=== PATIENT | female | born 1990 | race Caucasian/White ===

== ENCOUNTER → 2019-03-25 | Outpatient (CLI) | payer OTHER ==
[~2019-03-25] MED LIST: NORG1TAB74 PO; VENL37.53 PO
--- NOTE | 2019-03-25 10:28 | RADIOLOGY IMAGING REPORT ---
[place] [facility] [place]IENT NAME: Melissa Drake : 1990 MR: [id number] V: [id number] EXAM DATE: ORDERING PHYSICIAN: CHRISTINE DE LA PAZ TECHNOLOGIST: Location[place] [facility] [place] Patient: Melissa Drake : 1990 Visit/Account:[id number] Date of Sevice: 03/25/2019 TRANSVAGINAL NON-OB HISTORY: Right lower quadrant pain with history of polycystic ovary syndrome. TECHNIQUE: There has been satisfactory transvaginal ultrasonic evaluation of the pelvis. COMPARISON: None. FINDINGS: Uterus: Retroverted; it measures: 5.6 cm length x 3.2 cm AP x 4.3 cm transverse. Myometrium: Unremarkable. No fibroids identified.. Endometrium: Unremarkable; endometrial thickness 6.5 mm. Cervix: Grossly negative. Ovaries: Right - the right ovary measures 3.5 x 1.8 x 2.0 cm in size. It contains several follicular cys ts. Left - ovary measures 3.0 x 1.7 x 2.1 cm in size. It also contains several predominantly periph eral cyst. Blood flow is documented in each ovary by duplex Doppler ultrasound. Adnexa: Grossly unremarkable. Free pelvic fluid: None. Bladder: The bladder is decompressed for transvaginal imaging. IMPRESSION: 1. Retroverted but otherwise unremarkable uterus. 2. The ovaries contain multiple follicular cysts bilaterally. The distribution is somewhat peripher al. This can be seen with polycystic ovary syndrome, but correlation with clinical findings is recom mended. Report Dictated By: Jarret Wesley MD at 03/25/2019 10:19 AM Report E-Signed By: Jarret Wesley MD at 03/25/2019 10:21 AM WSN:[id number]
== END ==
LOC: US 04:00
PROVIDERS: ATTEND Family Medicine
DX: R10.30 Lower abdominal pain, unspecified (principal); N83.01 Follicular cyst of right ovary; N83.02 Follicular cyst of left ovary
CPT/HCPCS: 76830

== ENCOUNTER 2019-03-27 10:18 | Emergency (ER) | payer OTHER ==
[2019-03-27] MEDS ORDERED: NS(*) 0.9% 1000 ML BAG 1,000 ML IV ONE (10:26)
--- NOTE | 2019-03-27 10:29 | ER Report ---
History and Physical Time Seen By MD: 10:26 Hx. of Stated Complaint: ABDOMINAL PAIN FOR A COUPLE OF WEEKS. LAST NIGHT PT REPORTS A FEVER, PAIN INCREASED. HPI/ROS CHIEF COMPLAINT: Abdominal pain HISTORY OF PRESENT ILLNESS: Patient is an otherwise healthy 29-year-old female comes with right lower quadrant pain. Patient states the pain has been episodic for the last 3 weeks comes and goes no loosening relieving factors. One episode of loose stool one episode of vomiting. Patient states the pain is sharp stabbing localized right over McBurney's tenderness. Patient denies any hematuria and urinary complaints pyuria or increased frequency. Patient denies chest pain or shortness of breath or additional complaints noted REVIEW OF SYSTEMS: Respiratory: No cough, no dyspnea. Cardiovascular: No chest pain, no palpitations. Gastrointestinal: Abdominal pain right lower quadrant Musculoskeletal: No back pain. Remainder of the 14 system rev: Yes Allergies: Coded Allergies: amoxicillin (Verified Allergy, Intermediate, 03/27/19) Home Meds Reported Medications Venlafaxine Hcl (VENLAFAXINE HCL ER) 37.5 Mg Cap.er.24h, 37.5 MG PO QDAY 03/27/19 Norgestimate-Ethinyl Estradiol (SPRINTEC) 1 Each Tablet, 1 EACH PO DAILY 03/27/19 Reviewed Nurses Notes: Yes Old Medical Records Reviewed: Yes Constitutional Vital Sign - Last 24 Hours 03/27/19 03/27/19 03/27/19 03/27/19 10:21 10:22 10:30 10:48 Temp 98.0 Pulse 98 91 Resp 16 B/P (MAP) 139/79 139/79 (99) 129/99 (109) Pulse Ox 95 97 03/27/19 03/27/19 11:18 11:30 Pulse 91 B/P (MAP) 122/79 (93) Pulse Ox 99 Physical Exam General Appearance: [The patient is alert, has no immediate need for airway protection and no current signs of toxicity.] [ ] Eyes: Pupils equal and round no injection. Respiratory: Chest is non tender, lungs are clear to auscultation. Cardiac: regular rate and rhythm [ ] Gastrointestinal: Abdominal examination significant discomfort elicited with pain and palpation of the right lower quadrant positive McBurney's tenderness rebound no guarding no additional findings of note Musculoskeletal: Neck: Neck is supple and non tender. Extremities have full range of motion and are non tender. Skin: No rashes or lesions. [ ] DIFFERENTIAL DIAGNOSIS: After history and physical exam differential diagnosis was considered for acute appendicitis ovarian cyst ovarian torsion. colitis diverticulitis Medical Decision Making Data Points Result Diagram: 03/27/19 1025 03/27/19 1025 Laboratory Hematology Test 03/27/19 00:00 03/27/19 10:25 03/27/19 11:20 Human Chorionic Gonadotropin, Qual Negative (NEGATIVE) Red Blood Count 4.56 M/uL (4.17-5.56) Mean Corpuscular Volume 89.6 fL (80.0-96.0) Mean Corpuscular Hemoglobin 29.5 pg (26.0-33.0) Mean Corpuscular Hemoglobin Concent 33.0 g/dL (32.0-36.0) Red Cell Distribution Width 12.9 % (11.5-14.5) Mean Platelet Volume 7.4 fL (7.2-11.1) Neutrophils (%) (Auto) 79.1 % (39.4-72.5) Lymphocytes (%) (Auto) 12.6 % (17.6-49.6) Monocytes (%) (Auto) 7.2 % (4.1-12.4) Eosinophils (%) (Auto) 0.5 % (0.4-6.7) Basophils (%) (Auto) 0.6 % (0.3-1.4) Nucleated RBC Relative Count (auto) 0.0 /100WBC Neutrophils # (Auto) 12.3 K/uL (2.0-7.4) Lymphocytes # (Auto) 2.0 K/uL (1.3-3.6) Monocytes # (Auto) 1.1 K/uL (0.3-1.0) Eosinophils # (Auto) 0.1 K/uL (0.0-0.5) Basophils # (Auto) 0.1 K/uL (0.0-0.1) Nucleated RBC Absolute Count (auto) 0.01 K/uL Prothrombin Time 14.3 seconds (12.0-14.4) Prothromb Time International Ratio 1.10 Activated Partial Thromboplast Time 35 seconds (23-35) Sodium Level 142 mmol/L (137-145) Potassium Level 4.1 mmol/L (3.5-5.0) Chloride Level 106 mmol/L (98-107) Carbon Dioxide Level 25 mmol/L (22-31) Blood Urea Nitrogen 9 mg/dl (7-18) Creatinine 0.70 mg/dl (0.52-1.04) Glomerular Filtration Rate Calc > 60.0 Random Glucose 99 mg/dl (75-110) Calcium Level 9.1 mg/dl (8.4-10.2) Total Bilirubin 0.5 mg/dl (0.2-1.3) Aspartate Amino Transf (AST/SGOT) 15 U/L (0-35) Alanine Aminotransferase (ALT/SGPT) 32 U/L (0-56) Alkaline Phosphatase 137 U/L (0-126) Total Protein 7.7 g/dl (6.3-8.2) Albumin 3.8 g/dl (3.5-5.0) Lipase 57 U/L (23-300) Urine Color Straw Urine Clarity Clear Urine pH 6.0 pH (4.8-9.5) Urine Specific Hilliard 1.024 Urine Protein Negative mg/dL (NEGATIVE) Urine Glucose (UA) Negative mg/dL (NEGATIVE) Urine Ketones Negative mg/dL (NEGATIVE) Urine Blood Negative (NEGATIVE) Urine Nitrite Negative (NEGATIVE) Urine Bilirubin Negative (NEGATIVE) Urine Urobilinogen Negative mg/dL (0.2-1.9) Urine Leukocyte Esterase Negative (NEGATIVE) Urine RBC <1 /HPF (0-2/HPF) Urine WBC <1 /HPF (0-5/HPF) Urine Squamous Epithelial Cells Few /LPF (</=FEW) Urine Bacteria Negative /HPF (NONE-FEW) Urine Mucus None /HPF (NONE-FEW) Chemistry Test 03/27/19 00:00 03/27/19 10:25 03/27/19 11:20 Human Chorionic Gonadotropin, Qual Negative (NEGATIVE) White Blood Count 15.6 k/uL (4.5-11.0) Red Blood Count 4.56 M/uL (4.17-5.56) Hemoglobin 13.5 g/dL (12.0-16.0) Hematocrit 40.9 % (34.0-47.0) Mean Corpuscular Volume 89.6 fL (80.0-96.0) Mean Corpuscular Hemoglobin 29.5 pg (26.0-33.0) Mean Corpuscular Hemoglobin Concent 33.0 g/dL (32.0-36.0) Red Cell Distribution Width 12.9 % (11.5-14.5) Platelet Count 431 K/uL (150-450) Mean Platelet Volume 7.4 fL (7.2-11.1) Neutrophils (%) (Auto) 79.1 % (39.4-72.5) Lymphocytes (%) (Auto) 12.6 % (17.6-49.6) Monocytes (%) (Auto) 7.2 % (4.1-12.4) Eosinophils (%) (Auto) 0.5 % (0.4-6.7) Basophils (%) (Auto) 0.6 % (0.3-1.4) Nucleated RBC Relative Count (auto) 0.0 /100WBC Neutrophils # (Auto) 12.3 K/uL (2.0-7.4) Lymphocytes # (Auto) 2.0 K/uL (1.3-3.6) Monocytes # (Auto) 1.1 K/uL (0.3-1.0) Eosinophils # (Auto) 0.1 K/uL (0.0-0.5) Basophils # (Auto) 0.1 K/uL (0.0-0.1) Nucleated RBC Absolute Count (auto) 0.01 K/uL Prothrombin Time 14.3 seconds (12.0-14.4) Prothromb Time International Ratio 1.10 Activated Partial Thromboplast Time 35 seconds (23-35) Glomerular Filtration Rate Calc > 60.0 Calcium Level 9.1 mg/dl (8.4-10.2) Total Bilirubin 0.5 mg/dl (0.2-1.3) Aspartate Amino Transf (AST/SGOT) 15 U/L (0-35) Alanine Aminotransferase (ALT/SGPT) 32 U/L (0-56) Alkaline Phosphatase 137 U/L (0-126) Total Protein 7.7 g/dl (6.3-8.2) Albumin 3.8 g/dl (3.5-5.0) Lipase 57 U/L (23-300) Urine Color Straw Urine Clarity Clear Urine pH 6.0 pH (4.8-9.5) Urine Specific Hilliard 1.024 Urine Protein Negative mg/dL (NEGATIVE) Urine Glucose (UA) Negative mg/dL (NEGATIVE) Urine Ketones Negative mg/dL (NEGATIVE) Urine Blood Negative (NEGATIVE) Urine Nitrite Negative (NEGATIVE) Urine Bilirubin Negative (NEGATIVE) Urine Urobilinogen Negative mg/dL (0.2-1.9) Urine Leukocyte Esterase Negative (NEGATIVE) Urine RBC <1 /HPF (0-2/HPF) Urine WBC <1 /HPF (0-5/HPF) Urine Squamous Epithelial Cells Few /LPF (</=FEW) Urine Bacteria Negative /HPF (NONE-FEW) Urine Mucus None /HPF (NONE-FEW) Coagulation Test 03/27/19 10:25 Prothrombin Time 14.3 seconds Prothromb Time International Ratio 1.10 Activated Partial Thromboplast Time 35 seconds Urinalysis Test 03/27/19 11:20 Urine Color Straw Urine Clarity Clear Urine pH 6.0 pH (4.8-9.5) Urine Specific Hilliard 1.024 Urine Protein Negative mg/dL (NEGATIVE) Urine Glucose (UA) Negative mg/dL (NEGATIVE) Urine Ketones Negative mg/dL (NEGATIVE) Urine Blood Negative (NEGATIVE) Urine Nitrite Negative (NEGATIVE) Urine Bilirubin Negative (NEGATIVE) Urine Urobilinogen Negative mg/dL (0.2-1.9) Urine Leukocyte Esterase Negative (NEGATIVE) Urine RBC <1 /HPF (0-2/HPF) Urine WBC <1 /HPF (0-5/HPF) Urine Squamous Epithelial Cells Few /LPF (</=FEW) Urine Bacteria Negative /HPF (NONE-FEW) Urine Mucus None /HPF (NONE-FEW) ED Course/Re-evaluation ED Course ED course 29-year-old female comes in with acute right lower quadrant pain epis odically for the last week to week and a half spiked a fever 102 yesterday examinations consistent with positive McBurney's tenderness significant rebound and guarding CT scan shows a 6.8 cm periappendiceal abscess to Gen. surgery secondary to the abscess requiring I or drainage patient be transferred to an outside facility and then for IR drainage and future appendicitis evaluation removal Decision to Disposition Date: Mar 27, 2019 Decision to Disposition Time: 12:02 Depart Departure Latest Vital Signs Vital Signs Date Time Temp Pulse Resp B/P (MAP) Pulse Ox O2 Delivery O2 Flow Rate FiO2 03/27/19 11:30 122/79 (93) 03/27/19 11:18 91 99 03/27/19 10:21 98.0 16 Impression: Primary Impression: Abscess, periappendiceal Condition: Improved Disposition: [facility] BLANKA CASTILLO MD Mar 27, 2019 10:29
[2019-03-27] MEDS ORDERED: ONDANSETRON 4 MG/2 ML VIAL IVP ONE (10:30)
[2019-03-27] MEDS ORDERED: NORG1TAB74 PO (10:34)
[2019-03-27] MEDS ORDERED: VENL37.53 PO (10:35)
[2019-03-27 10:41] LABS: PLATELET COUNT, AUTOMATED 431 K/uL (150-450)
[2019-03-27] MEDS ORDERED: IOPAMIDOL 76% 100 ML INFUS BTL 100 ML ONE (10:50)
[2019-03-27 10:51] LABS: INR 1.1
--- NOTE | 2019-03-27 11:56 | RADIOLOGY IMAGING REPORT ---
FACILITY: [facility] - [place] PATIENT NAME: Melissa Drake : 1990 MR: [id number] V: [id number] EXAM DATE: ORDERING PHYSICIAN: BLANKA CASTILLO TECHNOLOGIST: Location: [facility] Patient: Melissa Drake : 1990 Visit/Account:[id number] Date of Sevice: 03/27/2019 ADDENDUM #1 ADDENDUM: Several enlarged lymph nodes measuring up to 2 cm in diameter consistent with reactive adenopathy are present in the right abdominal small bowel mesentery and retroperitoneum. Report Dictated By: Marquise Ruvalcaba MD at 03/27/2019 5:07 PM Report E-Signed By: Marquise Ruvalcaba MD at 03/27/2019 5:[address] scan of the abdomen and pelvis with contrast. HISTORY: Right lower quadrant pain for 3 weeks. COMPARISON: Pelvic ultrasound 03/25/2019. 3 mm and [address] images were obtained of the abdomen and pelvis using 75 mL intravenous I sovue-370. No oral contrast. One of the following dose optimization techniques was utilized in the pe rformance of this exam: Automated exposure control; adjustment of the mA and/or kV according to the p atient's size; or use of an iterative reconstruction technique. Specific details can be referenced in the facility's radiology CT exam operational policy. FINDINGS: The lung bases are clear. The liver and spleen are normal in size and free of focal defects. The gallbladder and bile ducts are unremarkable. The pancreas is normal in size. The portal vein is patent. The kidneys and adrenal gla nds are normal in size. No hydronephrosis. The ureters are not opacified. The urinary bladder is not opacified or distended. A normal appendix is not identified. An ill-define d multiloculated collection measuring 6.8 cm in transverse diameter is present in the right lower abd omen and pelvis, contiguous with the inferior medial aspect of the cecum. The uterus is normal in siz e and slightly heterogeneous. The ovaries are normal in size. A small amount of free fluid is present in the posterior pelvic cul-de-sac. Unopacified bowel loops are scattered in the abdomen and pelvis. The abdominal aorta is normal in size. No acute bony abnormalities. A few diverticula are present al kenneth the sigmoid colon. The sigmoid colon is incompletely distended. Moderate amounts of gas and stool are scattered elsewhere in the colon. Phleboliths are present in the true pelvis. IMPRESSION: Multiloculated right lower quadrant collection suspicious for a periappendiceal abscess. Other etiolo gies are also possible. Mild pelvic free fluid. Minimal sigmoid diverticulosis. Results were discussed with BLANKA CASTILLO at 03/27/2019 11:48 AM. Report Dictated By: Marquise Ruvalcaba MD at 03/27/2019 11:38 AM Report E-Signed By: Marquise Ruvalcaba MD at 03/27/2019 11:51 AM WSN:[id number]
[2019-03-27 12:00] VITALS: BP 132/86
== END 2019-03-27 13:24 | disposition short-term general hospital (02) ==
LOC: ER 10:37
DX: K35.33 Acute appendicitis with perforation, localized peritonitis, and gangrene, with abscess (principal)
CPT/HCPCS: 74177; 81001; 83690; 84703; 85025; 85610; 85730; 96360; 99285; J7030; Q9967; 82040; 82247; 82310; 82374; 82435; 82565; 82947; 84075; 84132; 84155; 84295; 84450; 84460; 84520

== ENCOUNTER → 2019-03-27 | Outpatient (CLI) | payer OTHER | LOC: AMB 13:15 | PROVIDERS: ATTEND Nurse Practitioner | DX: K37 Unspecified appendicitis (principal); R10.9 Unspecified abdominal pain | CPT/HCPCS: A0425; A0426 ==

== ENCOUNTER → 2019-05-16 | Outpatient (CLI) | payer OTHER ==
[~2019-05-16] MED LIST changes: +CEF300 PO; +IOPAMIDOL 76% 100 ML INFUS BTL 100 ML ONE; +METR500T15 PO; +SULF-198 PO
--- NOTE | 2019-05-16 10:56 | RADIOLOGY IMAGING REPORT ---
FACILITY: [facility] PATIENT NAME: Melissa Drake : 1990 MR: [id number] V: [id number] EXAM DATE: ORDERING PHYSICIAN: FINN BLACKMON TECHN[place] [facility] [place] : 1990 Visit/Account:[id number] Date of Sevice: 05/16/2019 CT ABDOMEN PELVIS W/ CON HISTORY: History of appendicitis with abscess and drain placement. TECHNIQUE: Following administration of IV contrast contiguous axial images acquired through the abdom en/pelvis. Coronal and sagittal reformatting also performed.Dose Lowering Technique One of the following dose optimization techniques was utilized in the performance of this exam: Autom ated exposure control; adjustment of the mA and/or kV according to the patient's size; or use of an i terative reconstruction technique. Specific details can be referenced in the facility's radiology C T exam operational policy. CONTRAST: 75 mL Isovue-370 COMPARISON: March 27, 2019 FINDINGS: Visualized lung bases: Negative. Hepatobiliary: Negative. Spleen: Negative. Adrenals: Negative. Pancreas: Negative. Kidneys ureters or bladder: Negative. Genitalia: Negative. GI: The appendix appears thickened measuring up to 1.3 cm in diameter. There has however been resol ution of the previously noted periappendiceal abscess. No surrounding inflammatory change identified in the periappendiceal fat and there is no evidence of free intra-abdominal or free pelvic fluid. Vessels/spaces/nodes: There are mildly prominent mesenteric lymph nodes are again seen in the right lower quadrant although appear less prominent when compared the prior study Bones/soft tissues: Schmorl's nodes in the lumbar spine Additional findings: None pertinent. IMPRESSION: The appendix appears thickened measuring up to 1.3 cm in diameter although no surrounding inflammator y changes identified at this time. (By history this is a preop evaluation for an appendectomy) The previously noted periappendiceal abscess has resolved Mildly prominent mesenteric lymph nodes are again seen in the right lower quadrant although appear sl ightly less prominent. Results were called to FINN BLACKMON at 05/16/2019 10:47 AM. Report Dictated By: Lynda Kuhn MD at 05/16/2019 10:17 AM Report E-Signed By: Lynda Kuhn MD at 05/16/2019 10:47 AM WSN:[email or web address]
== END ==
LOC: CT 00:53
PROVIDERS: ATTEND Surgery
DX: K35.890 Other acute appendicitis without perforation or gangrene (principal)
CPT/HCPCS: 74177; Q9967

== ENCOUNTER 2019-05-20 00:29 | Day surgery (SDC) | payer OTHER ==
[~2019-05-20] VITALS: Ht 175.3 cm; Wt 83.9 kg
[~2019-05-20 00:29] MED LIST changes: -IOPAMIDOL 76% 100 ML INFUS BTL 100 ML ONE
[2019-05-20] MEDS ORDERED: cefOXitin/DEX(*) 2GM/50ML PREM 50 ML IVPB ONE (06:00)
[2019-05-20] MEDS ORDERED: PREGABALIN 150 MG CAPSULE PO ONE (06:00)
[2019-05-20] MEDS ORDERED: ACETAMINOPHEN 500 MG TAB PO ONE (06:00)
[2019-05-20] MEDS ORDERED: LIDOCAINE/SOD BICARB 8.4% SYR ID ONE (06:00)
[2019-05-20] MEDS ORDERED: FAMOTIDINE 20 MG TAB PO ONE (06:00)
[2019-05-20] MEDS ORDERED: MIDAZOLAM 2 MG/2 ML VIAL IVP PRN (06:00)
[2019-05-20] MEDS ORDERED: NORMOSOL R SOLN(*) 1000 ML BAG 1,000 ML IV PRN (06:00)
[2019-05-20 06:16] VITALS: BP 107/72
[2019-05-20] MEDS ORDERED: LIDOCAINE 2% IV 100 MG/5ML SYR ONE (06:39)
[2019-05-20] MEDS ORDERED: ROCURONIUM BR 10 MG/ML 5 ML SY 5 ML ONE (06:39)
[2019-05-20] MEDS ORDERED: ONDANSETRON 4 MG/2 ML VIAL ONE (06:39)
[2019-05-20] MEDS ORDERED: PROPOFOL EMUL(*) 10MG/ML 20 ML 20 ML ONE (06:39)
[2019-05-20] MEDS ORDERED: DEXAMETHASONE SOD PHOS 10MG/ML ONE (06:39)
[2019-05-20] MEDS ORDERED: fentaNYL CITR 100 MCG/2 ML AMP ONE (06:39)
[2019-05-20] MEDS ORDERED: ROPIVACAINE 0.5% 20 ML VIAL ONE (06:53)
[2019-05-20 07:15] LABS: PLATELET COUNT, AUTOMATED 253 K/uL (150-450)
[2019-05-20] MEDS ORDERED: TRAM-420 PO (08:14)
[2019-05-20] MEDS ORDERED: DOCU-416 PO (08:14)
--- NOTE | 2019-05-20 08:16 | Short(Outpt) Discharge Summary ---
Discharge Summary Reason for Hosp/Final Diag: (1) Appendicitis with abscess Status: Resolved Hospital Course & Plan: Interval lap appy completed without problems. Departure Discharge to: Home, Self Care Discharge Instructions Home Meds Active Scripts Docusate Sodium (COLACE) 100 Mg Capsule, 1 CAP PO BID, #30 CAP 0 Refills TAKE WITH A FULL GLASS OF WATER Prov:FINN BLACKMON MD 05/20/19 Tramadol Hcl (TRAMADOL HCL) 50 Mg Tablet, 1 TAB PO Q4H PRN for PAIN, #20 TAB 0 Refills Prov:FINN BLACKMON MD 05/20/19 Sulfamethoxazole/Trimet 800-160 Mg Tab (BACTRIM DS TABLET) 1 Each Tablet, 1 TAB PO Q12H, #30 TAB 0 Refills Prov:FINN BLACKMON MD 05/17/19 Reported Medications Venlafaxine Hcl (VENLAFAXINE HCL ER) 37.5 Mg Cap.er.24h, 37.5 MG PO QDAY 03/27/19 Norgestimate-Ethinyl Estradiol (SPRINTEC) 1 Each Tablet, 1 EACH PO DAILY 03/27/19 Discontinued Scripts Metronidazole (METRONIDAZOLE) 500 Mg Tablet, 1 TAB PO TID, #21 TAB 0 Refills Prov:FINN BLACKMON MD 04/13/19 Cefdinir 300 Mg Cap (OMNICEF 300 MG CAP (OR EQUIV)) 300 Mg Cap, 1 CAP PO BID, #14 CAP 0 Refills Prov:FINN BLACKMON MD 04/13/19 Follow up Referrals: General Surgery - 06/01/19 @ Surgery, General with FINN BLACKMON MD You have a follow up appointment scheduled with Dr. Blackmon on 06/01/19, at 3:30pm. Diet: Regular Activity: As Tolerated Special Instructions: You may remove the white surgical dressings on 05/22/19, then you can shower. After showering, leave the incisions open to air but leave the steristrips in place until they fall off on their own. Do not immerse the incisions for 2 weeks. FINN BLACKMON MD May 20, 2019 08:16
--- NOTE | 2019-05-20 08:23 | Post Operative Progress Note ---
Post Operative Progress Note Date: May 20, 2019 Time: 08:13 Surgeon: Dariel Dictation number: [id number] Anesthesia: GETA by Dr. Mayberry Pre-Op Diagnosis: Appendicitis with abscess Post-Op Diagnosis: JOSE Findings: Inflamed distal appendix, no abscess, fluid, perforation, gangrene, or purulence Procedure(s): Interval lap appy Specimen Removed:(May be N/A): Appendix Complications: None Fluids: see anesthesia record Estimated Blood Loss: Minimal Date OP Note Dictated: May 20, 2019 Time OP Note Dictated: 08:14 FINN BLACKMON MD May 20, 2019 08:23
[2019-05-20 09:00] VITALS: BP 112/81
[2019-05-20 09:30] VITALS: BP 128/96
[2019-05-20 09:32] VITALS: BP 131/90
--- NOTE | 2019-05-20 10:24 | OPERATIVE REPORT 1 ---
EVENT DATE: May 20, 2019 SURGEON: Alfonzo Vieira MD ANESTHESIOLOGIST: Bam Mayberry MD ANESTHESIA: General endotracheal. PREOPERATIVE DIAGNOSIS History of appendicitis with abscess. POSTOPERATIVE DIAGNOSIS History of appendicitis with abscess. PROCEDURE PERFORMED Interval laparoscopic appendectomy. COMPLICATIONS None. CONDITION Stable. ESTIMATED BLOOD LOSS Minimal. FINDINGS The patient's distal appendix was inflamed, about the distal two-thirds. The base, approximately 1 cm from the cecum looked relatively normal. SPECIMEN Appendix. INDICATIONS This a 29-year old female who came into the emergency room about two months ago with a three week history of right lower quadrant abdominal pain. CT scan revealed appendicitis with a large, I believe if I recall correctly, 6 or 9 cm abscess. She was referred down to [facility] for interventional radiology, where they did a CT-guided percutaneous drainage of her abscess and cooled her down with antibiotics. She was then sent back to me and became asymptomatic so we scheduled her for an interval appendectomy. DESCRIPTION OF PROCEDURE The patient was brought to the operating room and placed supine on the operating table. General endotracheal anesthesia was administered and her abdomen was prepped and draped in a sterile fashion. A time-out was completed and I injected the infraumbilical skin with 0.5% ropivacaine plain. I made a curvilinear smiley-face type incision in the infraumbilical rim and dissected to the dermis and subcutaneous fat. I identified the midline fascia and made a vertical incision in the midline fascia, grasped the fascial edges with Christopher clamps and retracted the fascia towards the ceiling and then bluntly entered the peritoneal cavity with my finger. I placed two interrupted 0 Vicryl sutures transversely through the vertical fascial defect and then inserted a 12 mm Persaud type port through this wound and secured it into place with sutures. I then insufflated the abdomen to a pressure of 15 mmHg and inserted a 5 mm, 30- degree angled scope through this port. Under direct visualization, I placed the suprapubic midline 5 mm port and a left lower quadrant 5 mm port. I then had the patient placed in Trendelenburg and planed towards the left to remove the viscera from the right lower quadrant. There were some thin wispy adhesions in the right lower quadrant, which were easily taken down with the LigaSure device, mostly without any energy. I then was able to pull the omentum out of the right lower quadrant except there was a tongue of omentum that was adherent to the distal appendix. This was divided with the harmonic scalpel, being careful not to injure any intestine. Once the appendix was freed up from the omentum, I divided the mesoappendix with the harmonic scalpel down to the base and then divided the base of the appendix flush to the cecum with the endo-EVA stapler with a blue load. I then placed the appendix in a surgical specimen retrieval bag and removed it from the abdomen through the umbilical port site. I then removed some stray tomi from the abdominal cavity and irrigated and dried the right lower quadrant. The staple and divided mesoappendix were hemostatic and everything looked great so the bed was flattened and I pulled the omentum down over the cecum and then removed the 5 mm ports followed by desufflation and removing umbilical port and then finished closing the midline fascia with another [id number] 0-Vicryl and tied all three of these down with good reapproximation of the fascial edges and no remaining fascial defect. I then closed the skin at each port site with 4-0 Monocryl subcuticular suture. The skin was cleaned and dried and steri-strips were applied followed by sterile surgical dressings. The patient was awakened, extubated in the operating room and transported to the recovery room in stable condition, having tolerated the procedure without any apparent problems. ARLENE
== END 2019-05-20 08:58 | disposition home or self-care (01) ==
LOC: OR 00:29
PROVIDERS: ATTEND Surgery
DX: K35.33 Acute appendicitis with perforation, localized peritonitis, and gangrene, with abscess (principal)
CPT/HCPCS: 44970; 81025; 85025; 88304; J0694; J1100; J2001; J2250; J2405; J2704; J2795; J3010